=== PATIENT | female | born 1985 | race Caucasian/White ===

== ENCOUNTER 2016-10-23 19:50 | Emergency (ER) | payer SELFPAY ==
[~2016-10-23] VITALS: Ht 165.1 cm; Wt 84.0 kg
[2016-10-23 19:52] VITALS: BP 128/76; PULSE 83; RESP 16; TEMP 98.1; O2SAT 99
[2016-10-23] MEDS ORDERED: IPRA17I INH (20:09)
[2016-10-23] MEDS ORDERED: ALBU6.7H INH (20:09)
[2016-10-23] MEDS ORDERED: MONT10TA2 PO (20:09)
--- NOTE | 2016-10-23 20:12 | PD ---
HPI Chief Complaint: Respiratory Symptoms Time Seen by Provider: 20:09 Travel History International Travel<30 days: No Contact w/Intl Traveler<30days: No Traveled to known affect area: No History of Present Illness HPI 30-year-old white female presents to emergency department requesting a refill of her inhalers. She moved to the area one month ago. She states that she has COPD. 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 She states that she uses Singulair, Atrovent, and albuterol. She admits to shortness of breath and wheezing. She denies any nausea vomiting. No bowel pain. No fever or chills. Symptoms are mild PFSH Past Medical History Narrative Medical Substance abuse, COPD Respiratory: Yes (COPD) Tetanus Vaccination: < 5 Years ?: Not LMP: 10/11/16 Past Surgical History Surgical History: No Previous Surgery Social History Alcohol Use: Yes Tobacco Use: Yes Allergies-Medications (Allergen,Severity, Reaction): Coded Allergies: Toradol (Verified Allergy, Severe, Swelling, 10/23/16) Tramadol (Verified Allergy, Severe, Swelling, 10/23/16) Phenergan (Verified Allergy, Intermediate, Rash, 10/23/16) Review of Systems Except as stated in HPI: all other systems reviewed are Neg Physical Exam Narrative GENERAL: Well-developed, well-nourished in no acute distress. Nontoxic appearing. HEAD: Normocephalic, atraumatic. EYES: Pupils equal round and reactive. Extraocular motions intact. No scleral icterus. No injection or drainage. ENT: TMs clear without erythema. The external auditory canals clear. Nose: clear . Posterior pharynx is pink and moist. No tonsillar edema or exudate. Uvula midline. Airway patent. NECK: Trachea midline.Supple, nontender, moves head freely. No central bony tenderness or spasm. CARDIOVASCULAR: Regular rate and rhythm without murmurs, gallops, or rubs. RESPIRATORY: Few fine next. Wheezes. No Rales or rhonchi. No respiratory distress. GASTROINTESTINAL: Abdomen soft, non-tender, nondistended. No hepato-splenomegaly , or palpable masses. No guarding. EXTREMITIES: No clubbing, cyanosis, or edema. No joint tenderness, effusion, or edema noted. BACK: Nontender without deformity or crepitance. No flank tenderness. Data Data Last Documented VS Vital Signs Date Time Temp Pulse Resp B/P Pulse Ox O2 Delivery O2 Flow Rate FiO2 10/23/16 19:55 10/23/16 19:52 98.1 83 16 99 Room Air MDM Medical Decision Making Medical Screen Exam Complete: Yes Emergency Medical Condition: Yes Medical Record Reviewed: Yes Differential Diagnosis MDM: High Differential diagnoses: Pneumonia, bronchitis, URI, asthma, RAD, legionnaire's disease, SARS, ARDS, influenza, bronchiolitis, RSV,PE,CHF Narrative Course This is COPD, med refill Diagnosis Primary Impression: COPD (chronic obstructive pulmonary disease) Additional Impression: Medication refill Patient Instructions: General Instructions Additional Instructions: Rest. Increase fluids. Medications as directed Followup with your Dr. in one week. Return to the ER for any problems. Med/Other Pt SpecificInfo: Prescription(s) given Scripts Albuterol 6.7 GM Inh (Proventil Hfa 6.7 GM Inh)90 Mcg/Act Aer2 Puff INH Q6H PRN (SHORTNESS OF BREATH) #1 INHALER Prov:Murphy Morel MD 10/23/16 Ipratropium HFA 12.9 GM Inh (Atrovent HFA 12.9 GM Inh)17 Mcg/Act Aer2 Puff INH QID #1 INHALER Ref 0 Prov:Murphy Morel MD 10/23/16 Montelukast (Singulair)10 Mg Tab10 Mg PO HS #30 TAB Ref 0 Prov:Murphy Morel MD 10/23/16 Disposition: 01 DISCHARGE HOME Condition: Stable Doc Coker October 23, 2016 20:12
== END 2016-10-23 21:22 | disposition home or self-care (01) ==
LOC: NEPK 19:50
DX: J44.9 Chronic obstructive pulmonary disease, unspecified (principal); Z76.0 Encounter for issue of repeat prescription; Z72.0 Tobacco use; F15.21 Other stimulant dependence, in remission; Z57.5 Occupational exposure to toxic agents in other industries
CPT/HCPCS: 99281